=== PATIENT | male | born 1955 | race Caucasian/White ===

== ENCOUNTER → 2017-11-17 18:47 | Outpatient (CLI) | payer MEDICARE, SELFPAY | PROVIDERS: Visit Provider Family Medicine | DX: N20.0 Calculus of kidney (principal) | CPT/HCPCS: 82360 ==

== ENCOUNTER → 2019-10-07 15:00 | Outpatient (CLI) | payer MEDICARE, SELFPAY | PROVIDERS: PCP Family Medicine; Referring Provider Family Medicine; Visit Provider Family Medicine | DX: G40.909 Epilepsy, unspecified, not intractable, without status epilepticus (principal); E55.9 Vitamin D deficiency, unspecified; E53.8 Deficiency of other specified B group vitamins | CPT/HCPCS: 36415 ==

== ENCOUNTER → 2020-04-12 08:21 | Outpatient (CLI) | payer MEDICARE, SELFPAY | LOC: LABSPEC 09:24 → LAB 09:27 | PROVIDERS: PCP Family Medicine; Visit Provider Family Medicine | DX: E55.9 Vitamin D deficiency, unspecified (principal); G40.909 Epilepsy, unspecified, not intractable, without status epilepticus; E53.8 Deficiency of other specified B group vitamins; Z12.5 Encounter for screening for malignant neoplasm of prostate; Z13.220 Encounter for screening for lipoid disorders | CPT/HCPCS: 36415 ==

== ENCOUNTER → 2020-08-25 11:54 | Outpatient (CLI) | payer MEDICARE, SELFPAY | PROVIDERS: PCP Family Medicine; Visit Provider Family Medicine | DX: N28.9 Disorder of kidney and ureter, unspecified (principal); E78.5 Hyperlipidemia, unspecified; E53.8 Deficiency of other specified B group vitamins | CPT/HCPCS: 36415 ==

== ENCOUNTER → 2020-09-21 08:45 | Outpatient (REF) | payer MEDICARE, SELFPAY | LOC: LAB 08:45 | PROVIDERS: PCP Family Medicine; Referring Provider Family Medicine; Visit Provider Family Medicine | DX: N28.9 Disorder of kidney and ureter, unspecified (principal); E78.5 Hyperlipidemia, unspecified; E53.8 Deficiency of other specified B group vitamins | CPT/HCPCS: 36415 ==

== ENCOUNTER → 2020-12-25 09:27 | Outpatient (CLI) | payer MEDICARE, SELFPAY | PROVIDERS: PCP Family Medicine; Visit Provider Family Medicine | DX: N28.9 Disorder of kidney and ureter, unspecified (principal) | CPT/HCPCS: 36415 ==

== ENCOUNTER → 2022-01-01 | Outpatient (CLI) | payer MEDICARE, SELFPAY ==
[2022-01-01 17:57] LABS: Hematocrit 44.4 % (40-54); Hemoglobin 13.8 g/dL (13.0-16.5); Mean Corp Hgb Conc 31.1 g/dL (32-36); Mean Corpuscular Hgb 29.4 pg (27.0-32.0); Mean Corpuscular Volume 94.5 fL (80-94); Mean Platelet Vol. 9.5 fl (6.2-12.0); Platelet Count 297 K/mm3 (150-450); RBC Distribution Width CV 13.4 % (11.6-14.6); RBC Distribution Width SD 47.3 fl (35.1-43.9); White Blood Count 6.4 K/mm3 (4.4-11.0)
[2022-01-01 18:13] LABS: Vitamin B12 613 pg/mL (211-911); Vitamin D,25 Hydroxy 39.1 ng/mL
[2022-01-01 18:15] LABS: ALB/GLOB Ratio 1.1 RATIO (0.9-2.4); AST(SGOT) 20 U/L (15-37); Alanine Aminotransfer ALT/SGPT 27 U/L (16-61); Albumin, Serum 3.8 g/dL (3.2-5.0); Alkaline Phosphatase 83 U/L (45-117); Anion Gap 5 (5-15); BUN 13 mg/dL (7-18); BUN/Creat Ratio 9.1 RATIO (10-20); Calcium,Total 9.5 mg/dL (8.5-10.1); Chloride 113 mmol/L (98-107); Cholesterol 156 mg/dL (200); Creatinine, Serum 1.43 mg/dL (0.70-1.30); EST Glomerular Filtration Rate 53 mL/min (>60); Est Glom Filt Rate - Afr Amer 64 mL/min (>60); Ferritin 49 ng/mL (26-388); Globulin 3.5 g/dL (2.2-4.2); Glucose 105 mg/dL (74-106); High Density Lipoprotein 52 mg/dL; Iron 71 ug/dL (65-175); PSA,Total - Annual Screen 2.01 ng/mL (0.00-4.00); Potassium 4.9 mmol/L (3.5-5.1); Protein, Total 7.3 g/dL (6.4-8.2); Sodium Level 141 mmol/L (136-145); Triglycerides 181 mg/dL; Very Low Density Lipoprotein 36 mg/dL (5-40)
[2022-01-01 18:20] LABS: Erythrocyte Sedimentation Rate 15 mm/hr (0-20)
[2022-01-03 15:17] LABS: ANTINUCLEAR ANTIBODIES DIRECT Negative (Negative)
== END | disposition home or self-care (01) ==
LOC: MFPLAB 15:38
PROVIDERS: PCP Family Medicine; Referring Provider Family Medicine; Visit Provider Family Medicine
DX: G62.9 Polyneuropathy, unspecified (principal); G40.909 Epilepsy, unspecified, not intractable, without status epilepticus; E55.9 Vitamin D deficiency, unspecified; Z12.5 Encounter for screening for malignant neoplasm of prostate; E53.8 Deficiency of other specified B group vitamins; Z13.220 Encounter for screening for lipoid disorders
CPT/HCPCS: 36415; 80053; 80061; 82306; 82607; 82728; 83540; 84153; 85027; 85652; 86038; G0103

== ENCOUNTER → 2022-08-14 | Outpatient (CLI) | payer MEDICARE, SELFPAY | END | disposition home or self-care (01) | LOC: MFPLAB 16:24 | PROVIDERS: PCP Family Medicine; Visit Provider Family Medicine | DX: N18.9 Chronic kidney disease, unspecified (principal) | CPT/HCPCS: 36415 ==

== ENCOUNTER → 2023-09-25 | Outpatient (CLI) | payer MEDICARE, SELFPAY ==
[2023-09-25 17:54] LABS: AST(SGOT) 14 U/L (15-37); Alanine Aminotransfer ALT/SGPT 22 U/L (16-61); Albumin, Serum 3.7 g/dL (3.2-5.0); Alkaline Phosphatase 88 U/L (45-117); Anion Gap 2 (5-15); BUN 18 mg/dL (7-18); BUN/Creat Ratio 12.2 RATIO (10-20); Bilirubin, Direct 0.15 mg/dL (0.00-0.30); Calcium,Total 9.6 mg/dL (8.5-10.1); Chloride 116 mmol/L (98-107); Cholesterol 139 mg/dL (200); Creatinine, Serum 1.47 mg/dL (0.70-1.30); EST Glomerular Filtration Rate 51 mL/min (>60); Est Glom Filt Rate - Afr Amer 61 mL/min (>60); Globulin 3.1 g/dL (2.2-4.2); Glucose 111 mg/dL (74-106); High Density Lipoprotein 49 mg/dL; PSA,Total - Annual Screen 2.25 ng/mL (0.00-4.00); Potassium 3.8 mmol/L (3.5-5.1); Protein, Total 6.8 g/dL (6.4-8.2); Sodium Level 143 mmol/L (136-145); Triglycerides 169 mg/dL; Very Low Density Lipoprotein 34 mg/dL (5-40)
== END | disposition home or self-care (01) ==
LOC: MFPLAB 16:33
PROVIDERS: PCP Family Medicine; Visit Provider Family Medicine
DX: E78.5 Hyperlipidemia, unspecified (principal); G40.909 Epilepsy, unspecified, not intractable, without status epilepticus; Z12.5 Encounter for screening for malignant neoplasm of prostate
CPT/HCPCS: 36415; 80048; 80061; 80076; 84153; G0103

== ENCOUNTER → 2024-12-13 | Outpatient (CLI) | payer MEDICARE, SELFPAY ==
[2024-12-13 17:44] LABS: Hematocrit 40.9 % (40-54); Hemoglobin 13.3 g/dL (13.0-16.5); Mean Corp Hgb Conc 32.5 g/dL (32-36); Mean Corpuscular Hgb 29.8 pg (27.0-32.0); Mean Corpuscular Volume 91.7 fL (80-94); Platelet Count 292 K/mm3 (150-450); RBC Distribution Width CV 13.2 % (11.6-14.6); RBC Distribution Width SD 44.7 fl (35.1-43.9); Red Blood Count 4.46 M/mm3 (4.6-6.2); White Blood Count 9.4 K/mm3 (4.4-11.0)
[2024-12-13 18:04] LABS: PTHIN 38 pg/mL (11-61)
[2024-12-13 18:23] LABS: Anion Gap 13 (5-15); BUN 15 mg/dL (4-19); BUN/Creat Ratio 11.5 RATIO (10-20); Calcium,Total 10.4 mg/dL (7.6-11.0); Carbon Dioxide 19.1 mmol/L (21.0-32.0); Chloride 108 mmol/L (98-108); Creatinine, Serum 1.29 mg/dL (0.70-1.20); EST Glomerular Filtration Rate 60 (>60); Glucose 106 mg/dL (70-99); Iron 30 ug/dL (65-175); PSA,Total - Annual Screen 2.02 ng/mL (0.02-4.00); Potassium 4.4 mmol/L (3.3-5.1); Sodium Level 140 mmol/L (133-145); Vitamin B12 980 pg/mL (180-914); Vitamin D,25 Hydroxy 50.4 ng/mL (30-100)
== END | disposition home or self-care (01) ==
LOC: MTLAB 14:26
PROVIDERS: Anesthesiology; PCP Family Medicine; Referring Provider Family Medicine; Visit Provider Family Medicine
DX: Z01.818 Encounter for other preprocedural examination (principal); Z12.5 Encounter for screening for malignant neoplasm of prostate; N18.9 Chronic kidney disease, unspecified; E53.8 Deficiency of other specified B group vitamins
CPT/HCPCS: 36415; 80048; 82306; 82607; 83540; 83970; 84153; 85027; G0103

== ENCOUNTER 2024-12-20 05:54 | Day surgery (SDC) | payer MEDICARE, SELFPAY ==
--- NOTE | 2024-12-09 13:34 | EKG12_ITS ---
Test Reason : PRE OP Blood Pressure : */* mmHG Vent. Rate : 67 BPM Atrial Rate : 67 BPM P-R Int : 180 ms QRS Dur : 92 ms QT Int : 384 ms P-R-T Axes : 79 47 80 degrees QTcB Int : 405 ms Normal sinus rhythm Normal ECG Confirmed by RAJESH JUSTIN, CHARO ([id number]), development editor KAREN FLORES ([id number]) on 12/10/2024 6:40:39 AM Referred By: Wan Diana Confirmed By: CHARO MENA MD
--- NOTE | 2024-12-17 10:03 | PAT.ANE_ITS ---
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 When Was Last Pacemaker Check QUESTION #4 FULL TEXT: You/Your Family Experience fever (hyperthermia) with Anesthesia Last Oral Intake Last Oral intake: Last Oral Intake NPO since Meds taken in AM with sips of water? 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 - construction administrative assistant: PONV - construction administrative assistant Female No 12/06/24 13:08 HX of Motion Sickness No 12/06/24 13:08 HX of N/V After Surgery No 12/06/24 13:08 Non-Smoker Yes 12/06/24 13:08 Duration of Surgery greater Yes 12/06/24 13:08 than 60 minutes Number of Risk Factors 2 12/06/24 13:08 PONV Score Moderate Risk 12/06/24 13:08 Height & Weight Height & Weight: Anesthesia: Height & Weight Height 5 ft 10 in 11/18/24 09:31 Respiratory Assessment Respiratory Assessment - construction administrative assistant: Respiratory Tract Infection Hx - construction administrative assistant Hx Respiratory Tract Infection No 12/06/24 13:08 STOP Sleep Apnea STOP Sleep Apnea - construction administrative assistant: STOP Sleep Apnea - construction administrative assistant Hx Hypertension No 12/06/24 13:08 Hx Sleep Apnea No 12/06/24 13:08 CPAP BIPAP Do you snore loudly (louder No 12/06/24 13:08 than talking or can be heard Do you often feel tired/ No 12/06/24 13:08 fatigued/ sleepy during daytime? Has anyone observed you stop No 12/06/24 13:08 breathing during sleep? STOP Results Negative 12/06/24 13:08 QUESTION #5 FULL TEXT : Do you snore loudly (louder than talking or can be heard through closed doors)? 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 Specify any problems Hx of Preganancy in last 3 N/A 12/06/24 13:08 Months Nurse Filling Out Transfusion MGRIFFITH 12/06/24 13:08 & Questions: Date: 12/06/24 12/06/24 13:08 Time: 13:10 12/06/24 13:08 Patient unable to answer at this time (ie. confused, unrespo /Reproduction History /Reproductive History - construction administrative assistant: /Reproductive Hx- construction administrative assistant Hx Now Gestational Age (in weeks): EDC: Hx Hx Para Hx Section SAB Active Medications Active Medications: Current Medications Generic Name Dose Route Start Last Admin Trade Name Freq PRN Reason Stop Dose Admin Cefazolin Sodium 2 gm/ Sodium 110 mls @ 150 mls/hr 12/20/24 07:30 Chloride IV 12/20/24 08:13 INTRAOP ONE [facility] Medical History Wears glasses High cholesterol Non-smoker Seizures Left groin pain Home Medications ?Medication ?Instructions ?Recorded ?Last Taken ?Type atorvastatin 20 mg tablet 20 mg PO QDAY 11/18/24 Unkno wn History cholecalciferol (vitamin D3) 50 50 mcg PO QDAY 5 Unknown History mcg (2,000 unit) capsule mecobalamin (vitamin B12) 1,000 1,000 mcg PO QDAY 11/09 Unknown History mcg chewable tablet ldeyjsclrvck-iiimyqjw-ccrrnp tablet 1 tab PO QDAY 11/09 Unknown History topiramate 100 mg tablet (Topamax) 100 mg PO BID 11/18 Unknown History zonisamide 100 mg capsule 100 mg PO BID 11/18/24 Unkno wn History Allergy/AdvReac Type Severity Reaction Status Date / Time No Known Allergies Allergy Verified 12/06/24 13:04 Surgical History (Updated 11/18/24 @ 09:30 by Cheri Bernard) S/P knee surgery Social History (Updated 11/18/24 @ 09:31 by Cheri Bernard) Smoking Status: Never smoker alcohol intake: never Audit: Pertinent Findings HISTORY of Pertinent Findings History of Pertinent Findings: This is a patient with a hx of seizures on 2 anti-epileptics. Blood levels for seizure meds w/in normal limits. Pertinent Findings EKG Perinent findings: 12/09/24: Normal sinus rhythm Additional pertinent findings: serum Zonisamide and topiramate level is within normal limits Recommendation Anesthesia Recommendation Anesthesia recommendation: OPTIMIZED for anesthesia (please ensure that patient takes his anti-epileptics as prescribed )
[2024-12-20] VITALS (10 sets, daily range): BP systolic 106–122; BP diastolic 57–66; PULSE 58–63; RESP 16–20; TEMP 36.2–37.1; O2SAT 95–99; BMI 27.0
[2024-12-20] MEDS: Lactated Ringers 1,000 ML 15 ML IV (06:45)
--- NOTE | 2024-12-20 07:22 | PCM.PRE.AN2 ---
ASA Classification* ASA Classification ASA Classification: 2 Assessment & Plan Anesthesia* Anesthesia Assessment Anesthesia Assessment: Discussed sedation and/or anesthesia options, risks, benefits, and alternatives with patient/parents/legal guardian/POA. Questions invited. The patient/parents/legal guardian/POA seems to understand and agrees to proceed with anesthesia plan. Reviewed the physical assessment, medical history, allergy history and patient home medications list prior to surgery/procedure/anesthetic and documented any changes. Performed airway and anesthesia risk assessments. Anesthesia Type Anesthesia Type: General History Source History Obtained from:: Patient and Chart Anesthesia Focused Assessment* Temperature: 98.8 F Pulse Rate: 58 Blood Pressure: 107/66 Respiratory Rate: 16 Pulse Ox: 98 Oxygen Delivery Method: Room Air Airway Assessment Mouth opens: >3 cm Mallampati Score: III Teeth Condition: Missing (Patient has 1 missing molar right lower.) Neck Range of motion (ROM): Full ROM Focused Labs Anesthesia Preop lab: CBC WBC 9.4 K/mm3 (4.4-11.0) 12/13/24 14:41 12/13/24 RBC 4.46 M/mm3 (4.6-6.2) L 12/13/24 14:41 12/13/24 Hgb 13.3 g/dL (13.0-16.5) 12/13/24 14:41 12/13/24 Hct 40.9 % (40-54) 12/13/24 14:41 12/13/24 Plt Count 292 K/mm3 (150-450) 12/13/24 14:41 12/13/24 CHEMISTRY Potassium 4.4 mmol/L (3.3-5.1) 12/13/24 14:41 12/13/24 Sodium 140 mmol/L (133-145) 12/13/24 14:41 12/13/24 BUN 15 mg/dL (4-19) 12/13/24 14:41 12/13/24 Creatinine 1.29 mg/dL (0.70-1.20) H 12/13/24 14:41 12/13/24 Glucose 106 mg/dL (70-99) H 12/13/24 14:41 12/13/24 COAG Pre-Assessment Diagnosis/Proposed Procedure Planned Operative Procedure(s): (B) Lap Robotic Inguinal Hernia-bilateral inguinal hernia repair with mesh Anesthesia History 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 When Was Last Pacemaker Check QUESTION #4 FULL TEXT: You/Your Family Experience fever (hyperthermia) with Anesthesia Last Oral Intake Last Oral intake: Last Oral Intake NPO since 23:45 12/20/24 06:31 Meds taken in AM with sips of No 12/20/24 06:31 water? 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 Female No 12/06/24 13:08 HX of Motion Sickness No 12/06/24 13:08 HX of N/V After Surgery No 12/06/24 13:08 Non-Smoker Yes 12/06/24 13:08 Duration of Surgery greater Yes 12/06/24 13:08 than 60 minutes Number of Risk Factors 2 12/06/24 13:08 PONV Score Moderate Risk 12/06/24 13:08 Height & Weight Height & Weight: Anesthesia: Height & Weight Height 5 ft 10 in 12/20/24 06:31 Weight: 85.4 kg 12/20/24 06:31 Body Mass Index (BMI) 27.0 12/20/24 06:31 Respiratory Assessment Respiratory Assessment - textile pin worker: Respiratory Tract Infection Hx - textile pin worker Hx Respiratory Tract Infection No 12/06/24 13:08 STOP Sleep Apnea STOP Sleep Apnea - textile pin worker: STOP Sleep Apnea - textile pin worker Hx Hypertension No 12/06/24 13:08 Hx Sleep Apnea No 12/06/24 13:08 CPAP BIPAP Do you snore loudly (louder No 12/06/24 13:08 than talking or can be heard Do you often feel tired/ No 12/06/24 13:08 fatigued/ sleepy during daytime? Has anyone observed you stop No 12/06/24 13:08 breathing during sleep? STOP Results Negative 12/06/24 13:08 QUESTION #5 FULL TEXT : Do you snore loudly (louder than talking or can be heard through closed doors)? 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 Specify any problems Hx of Preganancy in last 3 N/A 12/06/24 13:08 Months Nurse Filling Out Transfusion MGRIFFITH 12/06/24 13:08 & Questions: Date: 12/06/24 12/06/24 13:08 Time: 13:10 12/06/24 13:08 Patient unable to answer at this time (ie. confused, unrespo /Reproduction History /Reproductive History - textile pin worker: /Reproductive Hx- textile pin worker Hx Now Gestational Age (in weeks): EDC: Hx Hx Para Hx Section SAB Active Medications Active Medications: Current Medications Generic Name Dose Route Start Last Admin Trade Name Freq PRN Reason Stop Dose Admin Cefazolin Sodium 2 gm/ Sodium 110 mls @ 150 mls/hr 12/20/24 07:30 Chloride IV 12/20/24 08:13 INTRAOP ONE Lactated Ringer's 1,000 mls @ 15 mls/hr 12/20/24 06:30 12/20/24 06:45 IV 15 mls/hr .Q48H MAXIMINO Administration PFSH Medical History Wears glasses High cholesterol Non-smoker Seizures Left groin pain Home Medications ?Medication ?Instructions ?Recorded ?Last Taken ?Type atorvastatin 20 mg tablet 20 mg PO QDAY 11/18/24 12/19/24 History cholecalciferol (vitamin D3) 50 50 mcg PO QDAY 11/18/24 12/19/24 History mcg (2,000 unit) capsule mecobalamin (vitamin B12) 1,000 1,000 mcg PO QDAY 11/18/24 12/19/24 History mcg chewable tablet uvxozefuzdlz-xlmphtkg-vjbtkn tablet 1 tab PO QDAY 11/18/24 12/19/24 History topiramate 100 mg tablet (Topamax) 100 mg PO BID 11/18/24 12/19/24 History zonisamide 100 mg capsule 100 mg PO BID 11/18/24 12/19/24 History Allergy/AdvReac Type Severity Reaction Status Date / Time No Known Allergies Allergy Verified 12/20/24 06:27 Surgical History S/P knee surgery Social History Smoking Status: Never smoker alcohol intake: never Review of Systems (Anesthesia) ROS Narrative System reviewed and no additional complaints, except as documented.
[2024-12-20] MEDS: ZONISAMIDE 100 MG CAPSULE PO (07:40)
[2024-12-20] MEDS: Topiramate 100 MG Tablet PO (07:40)
--- NOTE | 2024-12-20 07:46 | PCM.HP.STD ---
HPI - General General Date of Admission: 12/20/24 Date of Service: 12/20/24 Chief Complaint: bilateral inguinal hernia HPI Narrative YLOANDE SALMERON, is a 69 M who presents for elective repair of bilateral inguinal hernias [facility] Medical History Wears glasses High cholesterol Non-smoker Seizures Left groin pain Home Medications ?Medication ?Instructions ?Recorded ?Last Taken ?Type atorvastatin 20 mg tablet 20 mg PO QDAY 11/18/24 12/19/24 History cholecalciferol (vitamin D3) 50 50 mcg PO QDAY 11/18/24 12/19/24 History mcg (2,000 unit) capsule mecobalamin (vitamin B12) 1,000 1,000 mcg PO QDAY 11/18/24 12/19/24 History mcg chewable tablet pyvavksyjoim-hqipopfi-dzwysr tablet 1 tab PO QDAY 11/18/24 12/19/24 History topiramate 100 mg tablet (Topamax) 100 mg PO BID 11/18/24 12/19/24 History zonisamide 100 mg capsule 100 mg PO BID 11/18/24 12/19/24 History Allergy/AdvReac Type Severity Reaction Status Date / Time No Known Allergies Allergy Verified 12/20/24 06:27 Surgical History S/P knee surgery Social History Smoking Status: Never smoker alcohol intake: never Vital Signs Vital Signs Vital Signs: 12/20/24 06:31 12/20/24 06:31 12/20/24 07:28 Temperature 98.8 F 98.8 F Temperature Source Temporal Pulse Rate 58 L 58 L Respiratory Rate 16 16 Respiratory Pattern Normal Blood Pressure 107/66 107/66 Blood Pressure Mean 79 Blood Pressure Source Monitor Blood Pressure Position Semi-Fowlers Blood Pressure Location Right Arm Pulse Ox 98 98 Oxygen Delivery Method Room Air Room Air Weight Weight: 188 lb 4.396 oz Body Mass Index (BMI) 27.0 Physical Exam Const alert, oriented x3 and no apparent distress Charges/Coding Visit Charges Inpatient E&M: 19589 Init Hosp L1
[2024-12-20 07:47] LABS: Partial Thromboplast Time 28.5 Seconds (24.1-36.2)
[2024-12-20] MEDS: Cefazolin 2 GM in 0.9% Normal Saline (100mL Bag) 100 ML IV (08:11)
[2024-12-20] MEDS: Gentamicin 80 MG/2 ML Vial (08:36)
[2024-12-20] MEDS: Bupiv/Epi 0.25% 30 ML Vial (09:52)
--- NOTE | 2024-12-20 09:54 | DCINST_ITS ---
Discharge Instructions Diet Discharge Diet: Light diet - advance as tolerated Activity Discharge Activity: Return to Normal Activity and May Shower May shower in (days): 1 Ice area for (Minutes): 30 Lifting Restrictions: No lifting over 20 pounds for 6 weeks Dressing / Incision Call your doctor if your incision/area has: Continuous Slow Oozing, Sudden In creased Bleeding, Increased Pain/ Swelling, Increased Redness, Foul Smelling Discharge and Swelling at the incision site Call your doctor if you observe: Fever of 101 or Higher Cleanse incision/area with: Soap & Water Follow Up Care Please Follow Up With: Wan Diana MD When: 2 weeks. Please call office to schedule appointment Test Results: Test results from this visit will be discussed in further detail at your follow- up appointment, if applicable. Discharge Plan Admission Primary Reason for Your Visit: Bilateral inguinal hernia repair Attending Provider: Wan Diana Primary Care Provider: Steve Hughes Instructions Print Language: Iranian Discharge Orders/Prescriptions Prescriptions: New oxycodone-acetaminophen [Percocet] 5-325 mg tablet 1 tab PO Q8H PRN (Reason: pain) 3 Days Qty: 10 0RF Continued topiramate [Topamax] 100 mg tablet 100 mg PO BID cholecalciferol (vitamin D3) 50 mcg (2,000 unit) capsule 50 mcg PO QDAY zonisamide 100 mg capsule 100 mg PO BID mecobalamin (vitamin B12) 1,000 mcg tablet,chewable 1,000 mcg PO QDAY atorvastatin 20 mg tablet 20 mg PO QDAY vuxcnskybqkw-xggdtjru-jsqhxp Tablet 1 tab PO QDAY Other Ambulatory Orders: 12 Lead EKG (Routine) Timeframe: 20241209 Location: None Selected Ordered By: Dr. Cristóbal Horan Referrals / Follow Up: Steve Hughes MD [Primary Care Provider] - Disposition Disposition (needs filled in before D/C Order can be placed): Home, Self Care
--- NOTE | 2024-12-20 09:59 | PCM.OPRPT ---
Problems Associated Problem List Diagnoses (1) Bilateral inguinal hernia without obstruction or gangrene: Procedures Digestive 40xxx-49xxx: [id number] Lap ing hernia repair init; bilat Operative Report (Standard) Operative Information Date of Procedure: 12/20/24 Pre-Operative Diagnosis: Bilateral inguinal hernia Post-Operative Diagnosis: Bilateral inguinal hernia Surgery/Procedure Performed: Robotic bilateral inguinal hernia repair with mesh visual presentation manager: Yes Diesel Engine Pipe Fitter: Sheri Callaway Tasks completed by merchandising assistant: Closing, Trocar and Other Additional legal administrative assistant?: No Type of Anesthesia: General and Local RN Documented Start/Stop Times: Operation Date: 12/20/24 07:30 Case Time Into Pre-Op 12/20/24 06:18 Out of Pre-Op 12/20/24 07:50 Anesthesia Start 12/20/24 07:53 Into Room 12/20/24 07:53 Procedure Start 12/20/24 08:21 Into Recovery Procedure Start Time: 08:21 Procedure Stop Time: 09:55 Select all DRAINS/GRAFTS/IMPLANTS that apply: Prosthetic device Prosthetic device details: ProGrip 10 x 15 cm mesh x 2 Special Medications: 2 g Ancef IV preop Estimated Blood Loss: Minimal Specimen collected: No Description of surgery: The patient is a 69-year-old male who presented to my office recently with left inguinal pain and a bulge. On examination he actually had bilateral inguinal hernias. I offered him a robotic bilateral inguinal hernia repair with mesh. We discussed the details of the planned procedure including the risks benefits and alternatives. He wished to proceed. The patient was brought to the operating room today following informed consent. Preoperative antibiotics were given and a timeout was performed. He was placed supine on the operative table with arms outstretched on arm boards. General anesthesia was induced. Once adequately anesthetized his arms were comfortably tucked at his sides. The abdomen was then prepped and draped in the usual sterile manner. An 8 mm incision was made just above the umbilicus which a 5 mm trocar was placed optically. This was placed without incident. The abdomen is then insufflated with CO2 gas. A 5 mm 0 degree scope was inserted. There were no signs of bowel or vascular injury. Next 2 additional 8 mm trocars were placed. These were on either side of the abdomen and roughly the same level as the umbilicus. These were also placed without incident. The original 5 mm trocar at the umbilicus was then switched to an 8 mm trocar. The da Mir robot was then docked. Patient was placed in mild Trendelenburg positioning. The pelvis was visualized. The left-sided hernia was repaired first. This was performed by incising the peritoneum in a medial to lateral direction using curved scissors and electrocautery. A subperitoneal plane was then developed. Porter's ligament was dissected out medially. The patient had a indirect hernia along with a pretty sizable cord lipoma as well. This was reduced. Once sufficient dissection was performed to accommodate the mesh, a 10 x 15 piece of ProGrip mesh was selected. This was trimmed to fit the size of the region of dissection. This was placed in antibiotic solution and then inserted into the abdomen. It was then laid into position. It covered over the region nicely. The peritoneum was then closed in a running manner using a 6 inch V-Loc suture. This closed the peritoneum nicely. The right sided hernia was then addressed. The peritoneum again was then incised transversely in a lateral to medial direction. Another subperitoneal plane was developed. Porter's ligament was dissected out medially. Patient had another indirect hernia on the right side as well. He also had a cord lipoma on the side as well. The right side cord lipoma was much smaller. This was reduced. The mesh again was selected and trimmed to size. It was placed in antibiotic solution and laid in position. The mesh laid nicely over the dissection region, covering over the fascial defect nicely. The peritoneum was then closed again in a similar manner using a 6 inch V-Loc suture. The intra-abdominal pressure was decreased as the peritoneum was closed. All counts were correct at the end of the procedure. Local anesthetic was injected into each of the incision sites. The incisions were then closed with 4-0 Vicryl. Skin glue was applied as dressing. The patient was awakened from anesthesia and taken to recovery in good condition. He tolerated the surgery very well Surgical Findings: Bilateral inguinal hernias Complications Complications: No Admit VTE Documentation VTE Present on Admission: No VTE Mechan Device Prophylaxis: SCD's VTE Pharm Prophylaxis ordered?: No Reason prophylaxis not ordered: Treatment Not Indicated
--- NOTE | 2024-12-20 10:10 | PCM.POST.ANE ---
Anesthesia: Postop Eval I Current Vital Signs Temperature: 97.6 F Pulse Rate: 61 Blood Pressure: 111/64 Respiratory Rate: 20 Pulse Ox: 95 Oxygen Delivery Method: Room Air Assessment Airway patent: Yes Spontaneous unlabored respirations: Yes Mental status: Awake nausea: No Vomiting: No Anesthesia Complication: No Fluid Hydration Crystalloid volume administer (ml): 1,100 Total IV fluid infused: 1,100 Progress Note Anesthesia document: Postop Eval 1 completed: Yes
--- NOTE | 2024-12-20 18:08 | POSTOPAN2_ITS ---
Anesthesia Postop Eval I Sum Postop Eval Completion status Anesthesia document: Postop Eval 1 completed: Yes Anesthesia Postop Eval I Summary Anesthesia Postop Eval I Summary: Anesthesia Postop Eval I: Assessment Summary Airway patent Yes 12/20/24 10:11 [email or web address] Spontaneous unlabored Yes 12/20/24 10:11 [email or web address] respirations Mental status Awake 12/20/24 10:11 [email or web address] nausea No 12/20/24 10:11 WASHER [email or web address] Vomiting No 12/20/24 10:11 [email or web address] Anesthesia Postop Eval I: Fluid Summary Crystalloid volume administer 1,100 12/20/24 10:11 [email or web address] (ml) Colloids volume administered ( ml) Blood Product volume administered (ml) Total IV fluid infused 1,100 12/20/24 10:11 [email or web address] Anesthesia Postop Eval I: Summary Notes Anesthesia Complication No 12/20/24 10:11 [email or web address] Anesthesia Complication Comment: Post-operative progress note Anesthesia: Postop Eval II Evaluation Mental status: Awake and Calm Pain Level: 1 nausea: No Vomiting: No Complications Anesthesia Complication: No
--- NOTE | 2024-12-20 18:08 | PCM.POSTANE2 ---
Anesthesia Postop Eval I Sum Postop Eval Completion status Anesthesia document: Postop Eval 1 completed: Yes Anesthesia Postop Eval I Summary Anesthesia Postop Eval I Summary: Anesthesia Postop Eval I: Assessment Summary Airway patent Yes 12/20/24 10:11 VICE PRESIDENT OF SOFTWARE DEVELOPMENT.[email or web address] Spontaneous unlabored Yes 12/20/24 10:11 VICE PRESIDENT OF SOFTWARE DEVELOPMENT.JDEF respirations Mental status Awake 12/20/24 10:11 VICE PRESIDENT OF SOFTWARE DEVELOPMENT.JDEF nausea No 12/20/24 10:11 VICE PRESIDENT OF SOFTWARE DEVELOPMENT.JDEF Vomiting No 12/20/24 10:11 VICE PRESIDENT OF SOFTWARE DEVELOPMENT.[email or web address] Anesthesia Postop Eval I: Fluid Summary Crystalloid volume administer 1,100 12/20/24 10:11 VICE PRESIDENT OF SOFTWARE DEVELOPMENT.JDEF (ml) Colloids volume administered ( ml) Blood Product volume administered (ml) Total IV fluid infused 1,100 12/20/24 10:11 VICE PRESIDENT OF SOFTWARE DEVELOPMENT.[email or web address] Anesthesia Postop Eval I: Summary Notes Anesthesia Complication No 12/20/24 10:11 VICE PRESIDENT OF SOFTWARE DEVELOPMENT.JDEF Anesthesia Complication Comment: Post-operative progress note Anesthesia: Postop Eval II Evaluation Mental status: Awake and Calm Pain Level: 1 nausea: No Vomiting: No Complications Anesthesia Complication: No
== END 2024-12-20 12:11 | disposition home or self-care (01) ==
LOC: SDC 05:54 → AC 05:55
PROVIDERS: Student in an Organized Health Care Education/Training Program; PCP Family Medicine; Referring Provider Surgery; Visit Provider Surgery
PROC: (CPT 49650; principal; 2024-12-20 07:10)
DX: K40.20 Bilateral inguinal hernia, without obstruction or gangrene, not specified as recurrent (principal); E78.00 Pure hypercholesterolemia, unspecified; Z01.818 Encounter for other preprocedural examination; Z01.810 Encounter for preprocedural cardiovascular examination
CPT/HCPCS: 49650; 85730; 93005; C1781; J2405

== ENCOUNTER → 2024-12-27 | Outpatient (CLI) | payer MEDICARE, SELFPAY ==
--- NOTE | 2024-12-27 14:55 | RAD_ITS ---
PROCEDURE: KNEE 4 OR MORE VIEWS 12/27/2024 REASON FOR EXAM: PAIN TECHNIQUE: 4 view(s) of the right knee COMPARISON: None FINDINGS: No fracture or malalignment. Mild tricompartmental joint space narrowing. Bone mineral density is subjectively normal. Trace knee joint effusion. Soft tissues are unremarkable. RAD/Knee 4 or More Views IMPRESSION: Mild osteoarthritis of the right knee. Reading Location: [facility]
== END | disposition home or self-care (01) ==
LOC: MTRAD 14:53
PROVIDERS: PCP Family Medicine; Referring Provider Family Medicine; Visit Provider Family Medicine
DX: M25.561 Pain in right knee (principal)
CPT/HCPCS: 73564

== ENCOUNTER → 2025-01-27 | Outpatient (CLI) | payer MEDICARE, SELFPAY ==
[2025-01-27 12:32] LABS: Erythrocyte Sedimentation Rate 28 mm/hr (0-20)
[2025-01-27 13:05] LABS: Rheumatoid Factor < 10.0 IU/mL (<15); Uric Acid 5.3 mg/dL (3.5-7.2)
[2025-01-28 09:08] LABS: ANTINUCLEAR ANTIBODIES DIRECT Negative (Negative)
[2025-01-28 13:07] LABS: Lyme Scn Total Ab w/Rflx Negative (Negative)
== END | disposition home or self-care (01) ==
LOC: MFPLAB 10:40
PROVIDERS: PCP Family Medicine; Visit Provider Family Medicine
DX: M19.90 Unspecified osteoarthritis, unspecified site (principal)
CPT/HCPCS: 36415; 84550; 85652; 86038; 86140; 86431; 86618

== ENCOUNTER → 2025-03-08 | Outpatient (CLI) | payer MEDICARE, SELFPAY ==
[2025-03-08 19:15] LABS: Hematocrit 41.4 % (40-54); Hemoglobin 12.8 g/dL (13.0-16.5); Immature Granulocytes Count 0.020 X10^3/uL (0.0-0.0); Mean Corp Hgb Conc 30.9 g/dL (32-36); Mean Corpuscular Volume 94.7 fL (80-94); Mean Platelet Vol. 9.4 fl (6.2-12.0); NRBC Flagged by Analyzer 0 % (0-5); Platelet Count 383 K/mm3 (150-450); RBC Distribution Width CV 16.1 % (11.6-14.6); RBC Distribution Width SD 56.6 fl (35.1-43.9); Red Blood Count 4.37 M/mm3 (4.6-6.2); White Blood Count 8.2 K/mm3 (4.4-11.0)
[2025-03-08 19:50] LABS: CRP 14.90 mg/L (0.0-3.0)
== END | disposition home or self-care (01) ==
LOC: MFPLAB 14:14
PROVIDERS: PCP Family Medicine; Referring Provider Family Medicine; Visit Provider Family Medicine
DX: M25.50 Pain in unspecified joint (principal)
CPT/HCPCS: 36415; 85025; 85652; 86140

== ENCOUNTER 2025-06-17 14:59 | Inpatient (IN) | payer MEDICARE, SELFPAY ==
[2025-06-17] VITALS (13 sets, daily range): BP systolic 118–153; BP diastolic 65–74; PULSE 50–68; RESP 16–18; TEMP 36.4–37.1; O2SAT 94–100; BMI 23.0; BMI 21.6; BMI 24.0
[2025-06-17 15:52] LABS: Mucous, Urine 0 SEEN /hpf (<or=2+)
[2025-06-17 15:58] LABS: Color, Urine Brown (Yellow); Glucose, Dipstick Normal (Normal); Ketone-Dipstick 5 mg/dl (Negative); Leukocyte Esterase-Dipstick 100 /ul (Negative); Nitrite-Dipstick Positive (Negative); Occult Blood-Urine 250 /ul (Negative); Protein-Dipstick 100 mg/dl (Negative); Specific Gravity, Urine 1.020 (1.002-1.030)
[2025-06-17] MEDS: 0.9% Normal Saline (1000mL) 1,000 ML 1000 ML IV (16:02)
--- NOTE | 2025-06-17 16:13 | EX.ED.DYSGE1 ---
HPI History of Present Illness Chief Complaint: Flank Pain Narrative Narrative: Chief complaint and HPI: 69-year-old male with past medical history of urolithiasis, HLD, seizures presents for evaluation of urolithiasis. Patient states for the past 3 days he has had left flank pain with associated nausea and vomiting. He contacted his PCPs office who ordered an outpatient CT abdomen pelvis. CT abdomen pelvis showed a 16.7 mm calculus at the right UVJ causing right hydronephrosis as well as a 7 mm ureteral calculus in the distal portion of the left ureter causing mild degree of left hydronephrosis and hydroureter with perinephric stranding. Patient was then sent to the emergency department. He denies any fever, chills, dysuria. Does not follow with a urologist. Review of systems: See HPI Medications: As listed on the chart Allergies: As listed on the chart PFSH: Per chart Vital signs: As listed on the chart. Reviewed. Physical exam: Gen: A&O x3, NAD Head: Normocephalic, atraumatic Eyes: No sclera icterus, conjunctiva clear ENT: Moist mucous membranes CV: RRR, no murmurs Resp: Lungs CTA BL, no w/r/c GI: Abd soft, non-distended, non-tender, no r/r/g : No CVA tenderness Musc: Full ROM Skin: Warm, dry Psych: Cooperative, appropriate mood and affect [facility] Medical History (Updated 06/17/25 @ 15:44 by Sharon Squires) Kidney stones Bilateral inguinal hernia without obstruction or gangrene Wears glasses High cholesterol Non-smoker Seizures Left groin pain Home Medications ?Medication ?Instructions ?Recorded ?Last Taken ?Type atorvastatin 20 mg tablet 20 mg PO QDAY 11/18/24 12/19/24 History cholecalciferol (vitamin D3) 50 50 mcg PO QDAY 11/18/24 12/19/24 History mcg (2,000 unit) capsule mecobalamin (vitamin B12) 1,000 1,000 mcg PO QDAY 11/18/24 12/19/24 History mcg chewable tablet snfepdnpmkun-cypnojtd-fbljce tablet 1 tab PO QDAY 11/18/24 12/19/24 History topiramate 100 mg tablet (Topamax) 100 mg PO BID 11/18/24 12/19/24 History zonisamide 100 mg capsule 300 mg PO BID 11/18/24 12/19/24 History Allergy/AdvReac Type Severity Reaction Status Date / Time No Known Allergies Allergy Verified 06/17/25 15:02 Surgical History S/P knee surgery Social History Smoking Status: Never smoker alcohol intake: never EXAM Physical Exam Const Vital Signs: 06/17/25 15:00 06/17/25 17:00 Temperature 98.4 F Temperature Source Oral Pulse Rate 66 67 Respiratory Rate 16 16 Blood Pressure 153/74 H 129/67 H Blood Pressure Mean 100 87 Pulse Ox 100 100 Oxygen Delivery Method Room Air Room Air MDM MDM MDM Narrative Medical decision making narrative: 69-year-old male with past medical history of urolithiasis, HLD, seizures presents for evaluation of urolithiasis. Patient states for the past 3 days he has had left flank pain with associated nausea and vomiting. He contacted his PCPs office who ordered an outpatient CT abdomen pelvis. CT abdomen pelvis showed a 16.7 mm calculus at the right UVJ causing right hydronephrosis as well as a 7 mm ureteral calculus in the distal portion of the left ureter causing mild degree of left hydronephrosis and hydroureter with perinephric stranding. Patient was then sent to the emergency department. I personally reviewed the imaging of the CT abdomen pelvis. Differential diagnosis includes but is not limited to urolithiasis, electrolyte abnormality, JULIEN, UTI, pyelonephritis. NS bolus, morphine, Toradol ordered for symptoms. Laboratory workup ordered. CBC with mild leukocytosis 11.5. Patient has anemia of 12.5. On chart review has a history of anemia in the past. Patient has JULIEN with a BUN of 30 and a creatinine of 3.81. Baseline is about 1.2. UA positive for UTI. Urine culture sent. Rocephin ordered. Patient will warrant admission and likely OR. Urology, Dr. Dunn was consulted and patient was discussed. Plan is for OR this evening for stent placement. Patient made NPO. Recommend hospitalist admission. I spoke with the hospitalist who accepted admission. Spoke with the patient and updated of all results and plan. He confirmed understanding. Impression: 1. Bilateral urolithiasis with hydronephrosis 2. JULIEN secondary to #1 3. UTI Lab Data Labs: Laboratory Results - last 24 hr 06/17/25 06/17/25 15:46 16:00 WBC 11.5 H RBC 4.26 L Hgb 12.5 L Hct 38.8 L MCV 91.1 MCH 29.3 MCHC 32.2 RDW Std Deviation 47.6 H RDW Coeff of Ronny 14.4 Plt Count 322 MPV 9.1 Immature Gran % (Auto) 0.300 Neut % (Auto) 83.6 H Lymph % (Auto) 7.4 L [place] % (Auto) 8.1 Eos % (Auto) 0.2 Baso % (Auto) 0.4 Absolute Neuts (auto) 9.6 H Absolute Lymphs (auto) 0.85 Nucleated RBC % 0 Sodium 142 Potassium 4.6 Chloride 108 Carbon Dioxide 20.2 L Anion Gap 14 BUN 30 H Creatinine 3.81 H Estim Creat Clear Calc 18.84 L Est GFR (MDRD) Non-Af 16 L BUN/Creatinine Ratio 7.9 L Glucose 108 H Calcium 10.7 Urine Color Brown Urine Clarity Turbid Urine pH 5.0 Ur Specific [place] 1.020 Urine Protein 100 H Urine Glucose (UA) Normal Urine Ketones 5 H Urine Occult Blood 250 H Urine Nitrite Positive H Urine Bilirubin 1 H Urine Urobilinogen 1 H Ur Leukocyte Esterase 100 H Discharge Plan Triage Chief Complaint: Flank Pain ED Provider: Garret Cortes Dx/Rx/DC Orders Prescriptions: No Action topiramate [Topamax] 100 mg tablet 100 mg PO BID cholecalciferol (vitamin D3) 50 mcg (2,000 unit) capsule 50 mcg PO QDAY zonisamide 100 mg capsule 300 mg PO BID mecobalamin (vitamin B12) 1,000 mcg tablet,chewable 1,000 mcg PO QDAY atorvastatin 20 mg tablet 20 mg PO QDAY bwiflhzimwhy-cwanfygb-lrvuui Tablet 1 tab PO QDAY Primary Care Provider: Steve Hughes Referrals: Steve Hughes MD [Primary Care Provider, Family Practice] Print Language: Maori
[2025-06-17 16:16] LABS: Hematocrit 38.8 % (40-54); Hemoglobin 12.5 g/dL (13.0-16.5); Immature Granulocytes Count 0.040 X10^3/uL (0.0-0.0); Mean Corp Hgb Conc 32.2 g/dL (32-36); Mean Corpuscular Volume 91.1 fL (80-94); Mean Platelet Vol. 9.1 fl (6.2-12.0); NRBC Flagged by Analyzer 0 % (0-5); Platelet Count 322 K/mm3 (150-450); RBC Distribution Width CV 14.4 % (11.6-14.6); RBC Distribution Width SD 47.6 fl (35.1-43.9); Red Blood Count 4.26 M/mm3 (4.6-6.2); White Blood Count 11.5 K/mm3 (4.4-11.0)
[2025-06-17 16:32] LABS: Urine Bilirubin Dipstick 1 mg/dL (Negative)
[2025-06-17 16:47] LABS: Anion Gap 14 (5-15); BUN 30 mg/dL (4-19); BUN/Creat Ratio 7.9 RATIO (10-20); Calcium,Total 10.7 mg/dL (7.6-11.0); Carbon Dioxide 20.2 mmol/L (21.0-32.0); Chloride 108 mmol/L (98-108); Estimated Creatinine Clearance 18.84 ml/min (50-250); Glucose 108 mg/dL (70-99); Potassium 4.6 mmol/L (3.3-5.1)
[2025-06-17] MEDS: Ceftriaxone 2 GM in 0.9% Normal Saline (50mL MB+) 50 ML IV (17:01)
[2025-06-17 17:04] LABS: Red Blood Cells-Urine > 100 SEEN /hpf (0-5)
[2025-06-17 17:07] LABS: Squamous Epithelial Cells - UA 0-5 SEEN /hpf (0-5)
--- NOTE | 2025-06-17 17:12 | PCM.HP.STD ---
HPI - General General Date of Admission: 06/17/25 Date of Service: 06/17/25 Chief Complaint: Left-sided flank pain with nausea and vomiting HPI Narrative YOLANDE SALMERON, is a 69 M who presented to [facility] ED on 06/17/2025 with left-sided flank pain with nausea and vomiting. Patient has had kidney stones once in the past about 2 years ago, no recurrence since then. Medical history otherwise significant for seizure disorder and hyperlipidemia. In the ED CT abdomen pelvis showed a 16.7 mm calculus at the right UPJ causing marked right hydronephrosis and a 7 mm ureteral calculus in the distal left ureter causing mild left hydronephrosis and left hydroureter with left perinephric standing. He was afebrile, normotensive and stable on room air at rest in the ED. Labs notable for WBC count 11.5, creatinine 3.81 (baseline around 1.2), BUN 30. UA showed 100 leukocyte esterase, positive nitrates, 2+ bacteria, 2050 occult blood with greater than 100 RBCs noted. ED physician discussed case with Dr. Dunn who recommended an urgent procedure tonight. Hospitalist was then contacted for admission. I saw the patient at bedside in the ED, was present. Patient was mildly fatigued appearing but otherwise laying back comfortably in bed, conversing normally, in no acute distress. He denied any acute pain or discomfort currently. Reported mild nausea that was improved with a dose of IV Zofran. Has had minimal urine output today but notes that he did have moderate urine output for the past several days. He has had intermittent blood in his urine. No other acute concerns currently. Will be admitted for further management. [facility] Medical History (Updated 06/17/25 @ 18:[address] Danyel Roach, DO) Kidney stones Bilateral inguinal hernia without obstruction or gangrene Wears glasses High cholesterol Non-smoker Seizures Left groin pain Home Medications ?Medication ?Instructions ?Recorded ?Last Taken ?Type atorvastatin 20 mg tablet 20 mg PO QDAY 11/18/24 06/16/25 History cholecalciferol (vitamin D3) 50 50 mcg PO QDAY 11/18/24 06/16/25 History mcg (2,000 unit) capsule mecobalamin (vitamin B12) 1,000 1,000 mcg PO QDAY 11/18/24 06/16/25 History mcg chewable tablet tmemomazykrk-ndinqcls-zuhgyz tablet 1 tab PO QDAY 11/18/24 06/16/25 History topiramate 100 mg tablet (Topamax) 100 mg PO BID 11/18/24 06/17/25 03:00 History zonisamide 100 mg capsule 300 mg PO BID 11/18/24 06/16/25 History Allergy/AdvReac Type Severity Reaction Status Date / Time No Known Allergies Allergy Verified 06/17/25 17:57 Surgical History S/P knee surgery Social History Smoking Status: Never smoker alcohol intake: never ROS Constitutional Constitutional: Reports fatigue; Denies chills, fever(s) or weakness Cardiovascular Cardiovascular: Denies chest pain Respiratory/Chest Respiratory/Chest: Denies shortness of breath at rest Gastrointestinal Gastrointestinal: Reports nausea and vomiting; Denies abdominal pain, constipation or diarrhea Genitourinary Genitourinary: Reports dysuria, hematuria and other Details: Positive for left flank pain ; Denies burning urination, urinary frequency or urinary urgency Musculoskeletal Musculoskeletal: Denies arthralgias or myalgias Neurologic Neurologic: Denies dizziness, focal weakness or headache(s) Vital Signs Vital Signs Vital Signs: 06/17/25 15:00 06/17/25 17:00 Temperature 98.4 F Temperature Source Oral Pulse Rate 66 67 Respiratory Rate 16 16 Blood Pressure 153/74 H 129/67 H Blood Pressure Mean 100 87 Pulse Ox 100 100 Oxygen Delivery Method Room Air Room Air Weight Weight: 72.802 kg Body Mass Index (BMI) 23.0 Physical Exam Const alert, oriented x3, no apparent distress and average body habitus Constitutional Narrative: Pleasant elderly male, mildly fatigued appearing but otherwise laying back comfortably in bed, conversing normally, in no acute distress. General Appearance: cooperative and comfortable HEENT normocephalic, head/scalp atraumatic, hearing grossly normal bilaterally, nasal mucous membranes and turbinates normal and moist oral mucous membranes Eyes PERRL, EOMs intact bilaterally and conjunctivae normal Neck full ROM Chest inspection of chest normal Resp normal respiratory effort, normal air movement, no use of accessory muscles and clear to auscultation bilaterally Cardio regular rate, regular rhythm, no murmurs and peripheral pulses 2+ throughout GI normal to inspection, nondistended, normoactive bowel sounds, soft to palpation, non-tender and non-distended Narrative: Mild left-sided CVA tenderness noted. Bladder / Kidney Exam: bladder normal to palpation Back/Spine normal ROM Extremity normal to inspection, full ROM and no pedal edema Skin no rashes or lesions noted Psych mental status grossly normal Results Lab / Micro Data 06/17/25 16:00 06/17/25 16:00 Labs: Laboratory Results - last 24 hr 06/17/25 15:46: Urine Color Brown, Urine Clarity Turbid, Urine pH 5.0, Ur Specific [place] 1.020, Urine Protein 100 H, Urine Glucose (UA) Normal, Urine Ketones 5 H, Urine Occult Blood 250 H, Urine Nitrite Positive H, Urine Bilirubin 1 H, Urine Urobilinogen 1 H, Ur Leukocyte Esterase 100 H, Urine RBC > 100 SEEN, Urine WBC 5-10 SEEN, Ur Squamous Epith Cells 0-5 SEEN, Amorphous Sediment 2+, Urine Bacteria 2+, Urine Mucus 0 SEEN 06/17/25 16:00: WBC 11.5 H, RBC 4.26 L, Hgb 12.5 L, Hct 38.8 L, MCV 91.1, MCH 29.3, MCHC 32.2, RDW Std Deviation 47.6 H, RDW Coeff of Ronny 14.4, Plt Count 322, MPV 9.1, Immature Gran % (Auto) 0.300, Neut % (Auto) 83.6 H, Lymph % (Auto) 7.4 L, [place] % (Auto) 8.1, Eos % (Auto) 0.2, Baso % (Auto) 0.4, Absolute Neuts (auto) 9.6 H, Absolute Lymphs (auto) 0.85, Nucleated RBC % 0, Sodium 142, Potassium 4.6, Chloride 108, Carbon Dioxide 20.2 L, Anion Gap 14, BUN 30 H, Creatinine 3.81 H, Estim Creat Clear Calc 18.84 L, Est GFR (MDRD) Non-Af 16 L, BUN/Creatinine Ratio 7.9 L, Glucose 108 H, Calcium 10.7 Assessment & Plan Assessment/Plan (1) Bilateral nephrolithiasis: (2) Acute pyelonephritis: PLAN: Plan Patient is a 69-year-old male who presented to [facility] ED on 07/05 with left-sided flank pain and nausea with vomiting. 1. Bilateral nephrolithiasis with hydronephrosis and acute left-sided pyelonephritis ? Admit under inpatient status to PCU. Urology consulted. CT abdomen pelvis showed a 16.7 mm calculus at the right UPJ causing marked right hydronephrosis and a 7 mm ureteral calculus in the distal left ureter causing mild left hydronephrosis and left hydroureter with left perinephric standing. UA with 100 leukocyte esterase, positive nitrates, 2+ bacteria. Mild leukocytosis noted but otherwise afebrile and hemodynamically stable at rest, did not meet sepsis criteria. Planning for urgent procedure with Dr. Shaun chaney, will keep patient n.p.o. for this. Will treat with IV ceftriaxone for now, follow-up urine culture. 2. JULIEN ? Creatinine 3.81 on admit, baseline appears to be around 1.2. Patient does report adequate urine output until day of admission. Seems more likely prerenal in setting of acute pyelonephritis and GI losses from vomiting but may have some component of obstructive etiology. Urine sodium and creatinine ordered to calculate FeNa. Given 1 L of IV fluids in the ED. Will hold on further fluids for now, follow-up a.m. BMP and monitor urine output. 3. Seizure disorder ? Stable. Continue home topiramate and zonisamide. 4. Hyperlipidemia ? Continue home statin. DVT prophylaxis: Heparin subcu CODE STATUS: Full code, verified Expected disposition: Home, TBD Total clinical time spent by myself addressing the patient's medical issues, reviewing all the data, and collaborating with patient's care team: 62 minutes. Charges/Coding Visit Charges Inpatient E&M: 95127 Init Hosp L2
[2025-06-17] MEDS: Lactated Ringers 1,000 ML 15 ML IV (18:30)
--- NOTE | 2025-06-17 18:41 | PCM.PRE.AN2 ---
ASA Classification* ASA Classification ASA Classification: 2 and E Assessment & Plan Anesthesia* Anesthesia Assessment Anesthesia Assessment: Discussed sedation and/or anesthesia options, risks, benefits, and alternatives with patient/parents/legal guardian/POA. Questions invited. The patient/parents/legal guardian/POA seems to understand and agrees to proceed with anesthesia plan. Reviewed the physical assessment, medical history, allergy history and patient home medications list prior to surgery/procedure/anesthetic and documented any changes. Performed airway and anesthesia risk assessments. Anesthesia Type Anesthesia Type: MAC History Source History Obtained from:: Patient and Chart Anesthesia Focused Assessment* Temperature: 98.7 F Pulse Rate: 60 Blood Pressure: 125/68 Respiratory Rate: 18 Pulse Ox: 100 Oxygen Delivery Method: Room Air Airway Assessment Mouth opens: >3 cm Mallampati Score: III Teeth Condition: Chipped/Broken (Multiple chipped and broken teeth.) Neck Range of motion (ROM): Full ROM Labs Anesthesia Preop lab: CBC WBC, (4.4-11.0) 11.5 K/mm3 H Today, 16:00 RBC, (4.6-6.2) 4.26 M/mm3 L Today, 16:00 Hgb, (13.0-16.5) 12.5 g/dL L Today, 16:00 Hct, (40-54) 38.8 % L Today, 16:00 Plt Count, (150-450) 322 K/mm3 Today, 16:00 CHEMISTRY Potassium, (3.3-5.1) 4.6 mmol/L Today, 16:00 Sodium, (133-145) 142 mmol/L Today, 16:00 BUN, (4-19) 30 mg/dL H Today, 16:00 Creatinine, (0.70-1.20) 3.81 mg/dL H Today, 16:00 Glucose, (70-99) 108 mg/dL H Today, 16:00 COAG Pre-Assessment Diagnosis/Proposed Procedure Planned Operative Procedure(s): Cystoscopy, Insertion of left stent. Anesthesia History Anesthesia History - lime slaker: Anesthesia History - lime slaker Hx Hospitalization No 12/06/24 13:08 Any Problems With Anesthesia No 12/06/24 13:08 Cholinesterase deficiency No 12/06/24 13:08 You/Your Family Experience No 12/06/24 13:08 fever (hyperthermia) with Relationship Recent Exposure to Contagious No 12/20/24 06:31 Disease Does patient have nerve No 12/06/24 13:08 stimulator Patient instructed to have device shut off --Does patient have Pacemaker or ICD? When Was Last Pacemaker Check QUESTION #4 FULL TEXT: You/Your Family Experience fever (hyperthermia) with Anesthesia Last Oral Intake Last Oral intake: Last Oral Intake NPO since 10:00 06/17/25 17:43 Meds taken in AM with sips of No 06/17/25 17:43 water? 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 - lime slaker: PONV - lime slaker Female HX of Motion Sickness HX of N/V After Surgery Non-Smoker Duration of Surgery greater than 60 minutes Number of Risk Factors PONV Score Height & Weight Height & Weight: Anesthesia: Height & Weight Height 5 ft 10 in 06/17/25 17:43 Weight: 68.353 kg 06/17/25 17:43 Body Mass Index (BMI) 21.6 06/17/25 17:43 Respiratory Assessment Respiratory Assessment - lime slaker: Respiratory Tract Infection Hx - lime slaker Hx Respiratory Tract Infection No 12/06/24 13:08 STOP Sleep Apnea STOP Sleep Apnea - lime slaker: STOP Sleep Apnea - lime slaker Hx Hypertension No 12/06/24 13:08 Hx Sleep Apnea No 12/20/24 10:54 CPAP BIPAP Do you snore loudly (louder than talking or can be heard Do you often feel tired/ fatigued/ sleepy during daytime? Has anyone observed you stop breathing during sleep? STOP Results QUESTION #5 FULL TEXT : Do you snore loudly (louder than talking or can be heard through closed doors)? 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 Specify any problems Hx of Preganancy in last 3 Months Nurse Filling Out Transfusion & Questions: Date: Time: Patient unable to answer at this time (ie. confused, unrespo /Reproduction History /Reproductive History - lime slaker: /Reproductive Hx- lime slaker Hx Now Gestational Age (in weeks): EDC: Hx Hx Para Hx Section SAB Does the father of the baby or his family experience fever w Father of the baby Malignant Hypertension history comment Active Medications Active Medications: Current Medications Generic Name Dose Route Start Last Admin Trade Name Freq PRN Reason Stop Dose Admin Lactated Ringer's 1,000 mls @ 15 mls/hr 06/17/25 17:45 IV .Q48H MAXIMINO PFSH Medical History Kidney stones Bilateral inguinal hernia without obstruction or gangrene Wears glasses High cholesterol Non-smoker Seizures Left groin pain Home Medications ?Medication ?Instructions ?Recorded ?Last Taken ?Type atorvastatin 20 mg tablet 20 mg PO QDAY 11/18/24 06/16/25 History cholecalciferol (vitamin D3) 50 50 mcg PO QDAY 11/18/24 06/16/25 History mcg (2,000 unit) capsule mecobalamin (vitamin B12) 1,000 1,000 mcg PO QDAY 11/18/24 06/16/25 History mcg chewable tablet xmjslpsdocni-afmnwktx-iummrq tablet 1 tab PO QDAY 11/18/24 06/16/25 History topiramate 100 mg tablet (Topamax) 100 mg PO BID 11/18/24 06/17/25 03:00 History zonisamide 100 mg capsule 300 mg PO BID 11/18/24 06/16/25 History Allergy/AdvReac Type Severity Reaction Status Date / Time No Known Allergies Allergy Verified 06/17/25 17:57 Surgical History S/P knee surgery Social History Smoking Status: Never smoker alcohol intake: never Review of Systems (Anesthesia) ROS Narrative System reviewed and no additional complaints, except as documented.
--- NOTE | 2025-06-17 18:53 | POSTOPAN2_ITS ---
Anesthesia Postop Eval I Sum
--- NOTE | 2025-06-17 18:53 | PCM.POSTANE2 ---
Anesthesia Postop Eval I Sum Anesthesia Postop Eval I Summary Anesthesia Postop Eval I Summary: Anesthesia Postop Eval I: Assessment Summary Airway patent Spontaneous unlabored respirations Mental status nausea Vomiting Anesthesia Postop Eval I: Fluid Summary Crystalloid volume administer (ml) Colloids volume administered ( ml) Blood Product volume administered (ml) Total IV fluid infused Anesthesia Postop Eval I: Summary Notes Anesthesia Complication Anesthesia Complication Comment: Post-operative progress note Anesthesia: Postop Eval II Evaluation Mental status: Awake and Calm Pain Level: 1 nausea: No Vomiting: No Complications Anesthesia Complication: No
[2025-06-17] MEDS: ZONISAMIDE 100 MG CAPSULE 300 MG PO (19:00)
[2025-06-17] MEDS: Lactated Ringers 500 ML IV (19:12)
[2025-06-17] MEDS: Midazolam 2 MG/2 ML Syringe IV (19:20)
[2025-06-17] MEDS: Lidocaine 1% (5 ml sdv) 5 ML Vial 3 ML IV (19:20)
--- NOTE | 2025-06-17 19:31 | PCM.CONS.GEN ---
Assessment & Plan Assessment/Plan (1) Acute pyelonephritis: (2) Bilateral nephrolithiasis: PLAN: Plan right side observation nonfunctioning kidney no pain no intervention necessary at this point since is not infected etc. Left side plan for cystoscopy and left stent placement and then will plan for ureteroscopy and laser once the patient is stable (3) Migraines: (4) Bilateral inguinal hernia without obstruction or gangrene: (5) Seizures: (6) Left groin pain: HPI Consult Data Date of Consult: 06/17/25 HPI Narrative Reason for Consultation: Obstructing left kidney stone HPI Narrative: YOLANDE SALMERON, is a 69 M who presents to the emergency room with left severe flank pain CT scan was done that demonstrated 2 main findings, he has a nonfunctioning right kidney due to obstruction with a kidney stone and a dilated right kidney with no function, and he has a solitary left kidney obstructing stone in the mid left ureter and an elevated creatinine so plan to take him to surgery today for emergency left stent placement and then we will plan to bring him back later for laser lithotripsy of the stone the left side. The findings were discussed with the patient. [facility] Medical History Kidney stones Bilateral inguinal hernia without obstruction or gangrene Wears glasses High cholesterol Non-smoker Seizures Left groin pain Home Medications ?Medication ?Instructions ?Recorded ?Last Taken ?Type atorvastatin 20 mg tablet 20 mg PO QDAY 11/18/24 06/16/25 History cholecalciferol (vitamin D3) 50 50 mcg PO QDAY 11/18/24 06/16/25 History mcg (2,000 unit) capsule mecobalamin (vitamin B12) 1,000 1,000 mcg PO QDAY 11/18/24 06/16/25 History mcg chewable tablet xghiytemotds-iunffnsg-gplubt tablet 1 tab PO QDAY 11/18/24 06/16/25 History topiramate 100 mg tablet (Topamax) 100 mg PO BID 11/18/24 06/17/25 03:00 History zonisamide 100 mg capsule 300 mg PO BID 11/18/24 06/16/25 History Allergy/AdvReac Type Severity Reaction Status Date / Time No Known Allergies Allergy Verified 06/17/25 17:57 Surgical History S/P knee surgery Social History Smoking Status: Never smoker alcohol intake: never Physical Exam Const alert and oriented x3 General Appearance: cooperative HEENT normocephalic and head/scalp atraumatic Eyes PERRL and EOMs intact bilaterally Neck supple, no JVD and no carotid bruits Resp normal respiratory effort, normal air movement and clear to auscultation bilaterally Cardio regular rate and no murmurs GI normal to inspection, nondistended, normoactive bowel sounds and soft to palpation Extremity normal capillary refill General Extremity: no tenderness to palpation of joints or extremities; Negative for edema Skin no rashes or lesions noted and no wounds General Skin Exam: no breakdown Neuro CN's II-XII intact bilaterally Psych affect normal Appearance: appropriate Lab / Micro Data 06/17/25 16:00 06/17/25 16:00 Labs: Laboratory Results - last 24 hr 06/17/25 15:46: Urine Color Brown, Urine Clarity Turbid, Urine pH 5.0, Ur Specific [place] 1.020, Urine Protein 100 H, Urine Glucose (UA) Normal, Urine Ketones 5 H, Urine Occult Blood 250 H, Urine Nitrite Positive H, Urine Bilirubin 1 H, Urine Urobilinogen 1 H, Ur Leukocyte Esterase 100 H, Urine RBC > 100 SEEN, Urine WBC 5-10 SEEN, Ur Squamous Epith Cells 0-5 SEEN, Amorphous Sediment 2+, Urine Bacteria 2+, Urine Mucus 0 SEEN 06/17/25 16:00: WBC 11.5 H, RBC 4.26 L, Hgb 12.5 L, Hct 38.8 L, MCV 91.1, MCH 29.3, MCHC 32.2, RDW Std Deviation 47.6 H, RDW Coeff of Ronny 14.4, Plt Count 322, MPV 9.1, Immature Gran % (Auto) 0.300, Neut % (Auto) 83.6 H, Lymph % (Auto) 7.4 L, [place] % (Auto) 8.1, Eos % (Auto) 0.2, Baso % (Auto) 0.4, Absolute Neuts (auto) 9.6 H, Absolute Lymphs (auto) 0.85, Nucleated RBC % 0, Sodium 142, Potassium 4.6, Chloride 108, Carbon Dioxide 20.2 L, Anion Gap 14, BUN 30 H, Creatinine 3.81 H, Estim Creat Clear Calc 18.84 L, Est GFR (MDRD) Non-Af 16 L, BUN/Creatinine Ratio 7.9 L, Glucose 108 H, Calcium 10.7 06/17/25 18:03: Ur Random Sodium 32, Urine Creatinine 360.00 H
--- NOTE | 2025-06-17 19:33 | OP.PCM_ITS ---
Operative Report (Standard)
--- NOTE | 2025-06-17 19:33 | PCM.OPRPT ---
Operative Report (Standard) Operative Information Date of Procedure: 06/17/25 Pre-Operative Diagnosis: Obstructing left ureteral calculus left hydronephrosis acute renal sufficiency Post-Operative Diagnosis: The same Surgery/Procedure Performed: Cystoscopy left stent placement concrete spreader: No Type of Anesthesia: General RN Documented Start/Stop Times: Operation Date: 06/17/25 17:40 Case Time Into Pre-Op 06/17/25 17:35 Anesthesia Start 06/17/25 19:12 Into Room 06/17/25 19:12 Out of Pre-Op 06/17/25 19:16 Procedure Start 06/17/25 19:23 Procedure End 06/17/25 19:30 Procedure Start Time: 19:23 Procedure Stop Time: 19:30 Select all DRAINS/GRAFTS/IMPLANTS that apply: Drains Drain details: 6 [place] by 26 cm stent left side Estimated Blood Loss: None Specimen collected: No Description of surgery: Patient was taken back to the operating room after induction of general anesthesia, the patient was placed in dorsolithotomy position. The urethra and genitals were prepped and draped in usual sterile fashion. Using a 21 [place] rigid cystourethroscope the entire length of the urethra was normal then went into the bladder. Identified the trigone the left and right ureteral orifice. I then cannulated the left ureteral orifice and advanced a wire up into the kidney. I then backloaded a 5 [place] open ended catheter over the wire and injected contrast to delineate the anatomy. After the retrograde was performed I then used fluoroscopic images and guidance to advanced a wire up into the kidney and over the 0.038 glidewire I advanced a 6 [place] by 26 cm double pigtail stent. I then pulled the 0.038 Glidewire off and the stent coiled in the kidney bladder good position. The bladder was then drained. We confirmed the position of the stent by fluoroscopy. Patient anesthetic was reversed and was taken back to the PACU in good condition. Surgical Findings: This stent placed left side Complications Complications: No Admit VTE Documentation VTE Present on Admission: No VTE Mechan Device Prophylaxis: SCD's VTE Pharm Prophylaxis ordered?: No
--- NOTE | 2025-06-17 19:40 | POSTOP.ANE_ITS ---
Anesthesia: Postop Eval I
--- NOTE | 2025-06-17 19:40 | PCM.POST.ANE ---
Anesthesia: Postop Eval I Current Vital Signs Temperature: 98.3 F Pulse Rate: 68 Blood Pressure: 118/69 Respiratory Rate: 16 Pulse Ox: 94 Oxygen Delivery Method: Room Air Assessment Airway patent: Yes Spontaneous unlabored respirations: Yes Mental status: Calm and Asleep (Arousable) nausea: No Vomiting: No Anesthesia Complication: No Fluid Hydration Crystalloid volume administer (ml): 500 Total IV fluid infused: 500 Progress Note Anesthesia document: Postop Eval 1 completed: Yes
--- NOTE | 2025-06-17 20:00 | POSTOPAN2_ITS ---
Anesthesia Postop Eval I Sum
--- NOTE | 2025-06-17 20:00 | PCM.POSTANE2 ---
Anesthesia Postop Eval I Sum Postop Eval Completion status Anesthesia document: Postop Eval 1 completed: Yes Anesthesia Postop Eval I Summary Anesthesia Postop Eval I Summary: Anesthesia Postop Eval I: Assessment Summary Airway patent Yes 06/17/25 19:42 Spontaneous unlabored Yes 06/17/25 19:42 respirations Mental status Calm,Asleep - 06/17/25 19:42 Arousable nausea No 06/17/25 19:42 Vomiting No 06/17/25 19:42 Anesthesia Postop Eval I: Fluid Summary Crystalloid volume administer 500 06/17/25 19:42 (ml) Colloids volume administered ( ml) Blood Product volume administered (ml) Total IV fluid infused 500 06/17/25 19:42 Anesthesia Postop Eval I: Summary Notes Anesthesia Complication No 06/17/25 19:42 Anesthesia Complication Comment: Post-operative progress note Anesthesia: Postop Eval II Evaluation Mental status: Awake and Calm Pain Level: 0 nausea: No Vomiting: No Complications Anesthesia Complication: No
[2025-06-17] MEDS: MELATONIN 3 MG TABLET PO (21:05)
[2025-06-18 00:17] VITALS: PULSE 53
[2025-06-18 02:29] VITALS: BP 122/63; PULSE 58; RESP 16; TEMP 36.6; O2SAT 98
[2025-06-18 05:41] LABS: Hematocrit 34.2 % (40-54); Hemoglobin 11.1 g/dL (13.0-16.5); Mean Corp Hgb Conc 32.5 g/dL (32-36); Mean Corpuscular Volume 89.5 fL (80-94); Mean Platelet Vol. 9.4 fl (6.2-12.0); Platelet Count 273 K/mm3 (150-450); RBC Distribution Width CV 14.3 % (11.6-14.6); RBC Distribution Width SD 46.6 fl (35.1-43.9); Red Blood Count 3.82 M/mm3 (4.6-6.2); White Blood Count 7.8 K/mm3 (4.4-11.0)
[2025-06-18 06:17] LABS: Anion Gap 11 (5-15); BUN 29 mg/dL (4-19); BUN/Creat Ratio 9.3 RATIO (10-20); Calcium,Total 9.5 mg/dL (7.6-11.0); Carbon Dioxide 18.8 mmol/L (21.0-32.0); Chloride 112 mmol/L (98-108); Estimated Creatinine Clearance 23.37 ml/min (50-250); Glucose 94 mg/dL (70-99); Potassium 4.2 mmol/L (3.3-5.1)
[2025-06-18] MEDS: Heparin Injection (Vial) 5,000 UNIT/ML VIAL 5000 UNIT SC (06:31)
[2025-06-18] MEDS: ZONISAMIDE 100 MG CAPSULE 300 MG PO (06:31)
--- NOTE | 2025-06-18 08:45 | CASEMGMT ---
Dx: Bilateral nephrolithiasis, Acute pyelonephritis LACE: 2 6-Clicks: 22 Medical record reviewed and patient evaluated for identification of discharge planning needs. Based on this review, at this time criteria are not present to indicate a need for discharge planning. Will remain available to assist with discharge planning needs as identified or requested.
[2025-06-18] MEDS: FLU VACCINE HIGH DOSE 25-26(65YR UP) 180 MCG/0.5 ML SYRINGE IM (09:37)
[2025-06-18] MEDS: Cholecalciferol (VIT D3) 25 MCG TABLET (1,000 UNITS) 50 MCG PO ×2 (09:37)
[2025-06-18] MEDS: Ceftriaxone 2 GM in 0.9% Normal Saline (50mL MB+) 50 ML IV (09:46)
[2025-06-18 10:00] VITALS: PULSE 56
--- NOTE | 2025-06-18 14:48 | PN.HOSP_ITS ---
Reason for Visit
--- NOTE | 2025-06-18 14:48 | PCM.PN.HOSP ---
Reason for Visit Chief Complaint: Left-sided flank pain with nausea and vomiting Subjective Subjective Having some hematuria. Patient states that the urine is still red. Denies abdominal pain. Objective Data Objective Data Vital Signs: Vital Signs Temp Pulse Resp BP Pulse Ox O2 Del Method 36.6 C 56 L 16 122/63 H 98 Room Air 06/18/25 02:29 06/18/25 10:00 06/18/25 02:29 06/18/25 02:29 06/18/25 02:29 06/18/25 07:50 Oxygen Delivery Method Room Air Weight: 76 kg Body Mass Index (BMI) 24.0 Intake & Output: Intake and Output for Last 24 Hours 06/16/25 06/17/25 06/18/25 23:59 23:59 23:59 Intake Total 1283.25 / 1283.25 200 / 200 Balance 1283.25 / 1283.25 200 / 200 Lab / Micro Data 06/18/25 05:16 06/18/25 05:16 Labs: Laboratory Results - last 24 hr 06/17/25 15:46: Urine Color Brown, Urine Clarity Turbid, Urine pH 5.0, Ur Specific [place] 1.020, Urine Protein 100 H, Urine Glucose (UA) Normal, Urine Ketones 5 H, Urine Occult Blood 250 H, Urine Nitrite Positive H, Urine Bilirubin 1 H, Urine Urobilinogen 1 H, Ur Leukocyte Esterase 100 H, Urine RBC > 100 SEEN, Urine WBC 5-10 SEEN, Ur Squamous Epith Cells 0-5 SEEN, Amorphous Sediment 2+, Urine Bacteria 2+, Urine Mucus 0 SEEN 06/17/25 16:00: WBC 11.5 H, RBC 4.26 L, Hgb 12.5 L, Hct 38.8 L, MCV 91.1, MCH 29.3, MCHC 32.2, RDW Std Deviation 47.6 H, RDW Coeff of Ronny 14.4, Plt Count 322, MPV 9.1, Immature Gran % (Auto) 0.300, Neut % (Auto) 83.6 H, Lymph % (Auto) 7.4 L, [place] % (Auto) 8.1, Eos % (Auto) 0.2, Baso % (Auto) 0.4, Absolute Neuts (auto) 9.6 H, Absolute Lymphs (auto) 0.85, Nucleated RBC % 0, Sodium 142, Potassium 4.6, Chloride 108, Carbon Dioxide 20.2 L, Anion Gap 14, BUN 30 H, Creatinine 3.81 H, Estim Creat Clear Calc 18.84 L, Est GFR (MDRD) Non-Af 16 L, BUN/Creatinine Ratio 7.9 L, Glucose 108 H, Calcium 10.7 06/17/25 18:03: Ur Random Sodium 32, Urine Creatinine 360.00 H 06/18/25 05:16: WBC 7.8, RBC 3.82 L, Hgb 11.1 L, Hct 34.2 L, MCV 89.5, MCH 29.1, MCHC 32.5, RDW Std Deviation 46.6 H, RDW Coeff of Ronny 14.3, Plt Count 273, MPV 9.4, Sodium 141, Potassium 4.2, Chloride 112 H, Carbon Dioxide 18.8 L, Anion Gap 11, BUN 29 H, Creatinine 3.08 H, Estim Creat Clear Calc 23.37 L, Est GFR (MDRD) Non-Af 21 L, BUN/Creatinine Ratio 9.3 L, Glucose 94, Calcium 9.5 Micro: Microbiology 06/17/25 16:46 Urine, Clean Catch Urine Culture - Preliminary Culture exhibits no growth. Physical Exam Const alert and no apparent distress Constitutional Narrative: Up in bed. Nontoxic HEENT head/scalp atraumatic and moist oral mucous membranes Resp normal respiratory effort, no retractions, no use of accessory muscles and clear to auscultation bilaterally Cardio regular rate, regular rhythm, S1 normal heart sound and S2 normal heart sound GI normal to inspection, nondistended, normoactive bowel sounds, soft to palpation, non-tender and non-distended Assessment & Plan Assessment/Plan (1) Ureteral calculus: PLAN: Patient has chronic 16.7 calculus at the right UPJ with marked degree of right hydronephrosis. But he had a 7 mm ureteral calculus of the distal portion of the left ureter. Patient underwent cystoscopy on the seventh and had a left ureteral stent placed. The right was observational due to nonfunctioning kidney and no pain per urology. Patient to follow-up with urology as outpatient and will have ureteroscopy and laser. Patient did have hematuria before and after the procedure but discussed with the nurse that urine is more of a pink color. Patient is feeling much better at this time. Patient to follow-up with urology as outpatient. No evidence of any pyelonephritis on his imaging nor his urinalysis. No additional antibiotics at this time.
--- NOTE | 2025-06-18 15:03 | PCM.DC.SUM ---
Providers Date of Admission: 06/17/25 Primary Care Physician: Dr. Steve Hughes MD Consultations 06/17/25 20:20 Consult: Urology Routine Consulting Provider: Bryan Dunn Reason for Consult: b/l nephrolithiasis w/ hydronephrosis EMERGENT Consult: No MD Notified: Yes Date Notified: 06/17/25 Time Notified: 22:19 Method of Notification: Verbal Reason For Visit: B/L NEPHROLITHIASIS W/ HYDRONEPHROSIS Diagnosis Discharge Diagnosis (1) Ureteral calculus: Status: Acute Code(s): N20.1 - Calculus of ureter Plan: Patient has chronic 16.7 calculus at the right UPJ with marked degree of right hydronephrosis. But he had a 7 mm ureteral calculus of the distal portion of the left ureter. Patient underwent cystoscopy on the and had a left ureteral stent placed. The right was observational due to nonfunctioning kidney and no pain per urology. Patient to follow-up with urology as outpatient and will have ureteroscopy and laser. Patient did have hematuria before and after the procedure but discussed with the nurse that urine is more of a pink color. Patient is feeling much better at this time. Patient to follow-up with urology as outpatient. No evidence of any pyelonephritis on his imaging nor his urinalysis. No additional antibiotics at this time. Patient proved much faster than initially anticipated. Medications at Discharge Home Medications atorvastatin 20 mg tablet 20 mg PO QDAY cholesterol 11/18/24 cholecalciferol (vitamin D3) 50 mcg (2,000 unit) capsule 50 mcg PO QDAY vitamin 11/18/24 mecobalamin (vitamin B12) 1,000 mcg chewable tablet 1,000 mcg PO QDAY vitamin 11/18/24 hfunwiiqayfk-xnfwhjdh-tuiull tablet 1 tab PO QDAY vitamin 11/18/24 topiramate 100 mg tablet (Topamax) 100 mg PO BID seizures 11/18/24 zonisamide 100 mg capsule 300 mg PO BID seizures 11/18/24 Hospital Course Procedures - (Cystoscopy) Weight / BMI Weight Weight: 76 kg Body Mass Index (BMI) 24.0 ABG / Lab / Microbiology Data 06/18/25 05:16 06/18/25 05:16 Laboratory: Laboratory Results - last 24 hr 06/17/25 15:46: Urine Color Brown, Urine Clarity Turbid, Urine pH 5.0, Ur Specific [place] 1.020, Urine Protein 100 H, Urine Glucose (UA) Normal, Urine Ketones 5 H, Urine Occult Blood 250 H, Urine Nitrite Positive H, Urine Bilirubin 1 H, Urine Urobilinogen 1 H, Ur Leukocyte Esterase 100 H, Urine RBC > 100 SEEN, Urine WBC 5-10 SEEN, Ur Squamous Epith Cells 0-5 SEEN, Amorphous Sediment 2+, Urine Bacteria 2+, Urine Mucus 0 SEEN 06/17/25 16:00: WBC 11.5 H, RBC 4.26 L, Hgb 12.5 L, Hct 38.8 L, MCV 91.1, MCH 29.3, MCHC 32.2, RDW Std Deviation 47.6 H, RDW Coeff of Ronny 14.4, Plt Count 322, MPV 9.1, Immature Gran % (Auto) 0.300, Neut % (Auto) 83.6 H, Lymph % (Auto) 7.4 L, [place] % (Auto) 8.1, Eos % (Auto) 0.2, Baso % (Auto) 0.4, Absolute Neuts (auto) 9.6 H, Absolute Lymphs (auto) 0.85, Nucleated RBC % 0, Sodium 142, Potassium 4.6, Chloride 108, Carbon Dioxide 20.2 L, Anion Gap 14, BUN 30 H, Creatinine 3.81 H, Estim Creat Clear Calc 18.84 L, Est GFR (MDRD) Non-Af 16 L, BUN/Creatinine Ratio 7.9 L, Glucose 108 H, Calcium 10.7 06/17/25 18:03: Ur Random Sodium 32, Urine Creatinine 360.00 H 06/18/25 05:16: WBC 7.8, RBC 3.82 L, Hgb 11.1 L, Hct 34.2 L, MCV 89.5, MCH 29.1, MCHC 32.5, RDW Std Deviation 46.6 H, RDW Coeff of Ronny 14.3, Plt Count 273, MPV 9.4, Sodium 141, Potassium 4.2, Chloride 112 H, Carbon Dioxide 18.8 L, Anion Gap 11, BUN 29 H, Creatinine 3.08 H, Estim Creat Clear Calc 23.37 L, Est GFR (MDRD) Non-Af 21 L, BUN/Creatinine Ratio 9.3 L, Glucose 94, Calcium 9.5 Microbiology: Microbiology 06/17/25 16:46 Urine, Clean Catch Urine Culture - Preliminary Culture exhibits no growth. D/C Instructions DC O2, CPAP, BIPAP Needs Home O2 Discharge instructions: No DC home with Oxygen: No Meaningful Use Info Meaningful Use Meaningful Use Diagnoses (Choose all that apply): None applicable Discharge Plan Admission Admit Date/Time: 06/17/25 17:57 Primary Reason for Your Visit: Left ureteral stone Attending Provider: Bryan Dunn Primary Care Provider: Steve Hughes Consulting Providers: Basim Everett Instructions Additional Instructions / Restrictions: You had a kidney stone in your left ureter (the tube connecting your kidney to your bladder). You underwent a procedure called a cystoscopy and you had a stent placed in your ureter. He will follow-up with urology as outpatient to have repeat procedure for the stone and the stent. He did have he hematuria (blood in urine) this is due to the stone and the stent. This should continue to improve with time. You do notice increased bleeding with blood clots, notify your physician or return to the emergency room. Discharge Orders/Prescriptions Prescriptions: Continued topiramate [Topamax] 100 mg tablet 100 mg PO BID cholecalciferol (vitamin D3) 50 mcg (2,000 unit) capsule 50 mcg PO QDAY zonisamide 100 mg capsule 300 mg PO BID mecobalamin (vitamin B12) 1,000 mcg tablet,chewable 1,000 mcg PO QDAY atorvastatin 20 mg tablet 20 mg PO QDAY [id number]-[id number] Tablet 1 tab PO QDAY Referrals / Follow Up: Steve Hughes MD [Primary Care Provider, Family Practice] - Within 2 Weeks Bryan Dunn MD [Med Staff - Active Staff, Urology] - Within 2 Weeks Disposition Disposition (needs filled in before D/C Order can be placed): Home, Self Care Charges/Coding Visit Charges Inpatient E&M: 16837 Disch Hosp
== END 2025-06-18 15:55 | disposition home or self-care (01) | DRG 661 ==
LOC: ED 17:26 → PCU 06-18 07:15 → SDC 06-20 09:10 → ACINP 06-20 09:10 → PCU 06-20 09:11 → SDC 06-20 09:11 → PCU 06-20 09:11
PROVIDERS: Admitting Provider Hospitalist; Emergency Provider Surgery; PCP Family Medicine; Visit Provider Urology
PROC: 0T778DZ Dilation of Left Ureter with Intraluminal Device, Via Natural or Artificial Opening Endoscopic (ICD-10-PCS; principal; 2025-06-17 17:30)
DX: N13.2 Hydronephrosis with renal and ureteral calculous obstruction (principal); E78.00 Pure hypercholesterolemia, unspecified; G40.909 Epilepsy, unspecified, not intractable, without status epilepticus; Z79.899 Other long term (current) drug therapy; Z23 Encounter for immunization
CPT/HCPCS: 36415; 74018; 74176; 76000; 80048; 80053; 81001; 82570; 84300; 85025; 85027; 87086; 94668; 97802; 99283; A4216; C1769; C2617; J0696; J2405

== ENCOUNTER → 2025-06-17 | Outpatient (CLI) | payer MEDICARE, SELFPAY ==
--- NOTE | 2025-06-17 11:17 | RAD_ITS ---
PROCEDURE: RAD/Abdomen Single View
[2025-06-17 12:04] LABS: Hematocrit 41.6 % (40-54); Hemoglobin 13.4 g/dL (13.0-16.5); Immature Granulocytes Count 0.040 X10^3/uL (0.0-0.0); Mean Corp Hgb Conc 32.2 g/dL (32-36); Mean Corpuscular Volume 91.0 fL (80-94); Mean Platelet Vol. 9.2 fl (6.2-12.0); NRBC Flagged by Analyzer 0 % (0-5); Platelet Count 354 K/mm3 (150-450); RBC Distribution Width CV 14.3 % (11.6-14.6); RBC Distribution Width SD 47.5 fl (35.1-43.9); Red Blood Count 4.57 M/mm3 (4.6-6.2); White Blood Count 12.7 K/mm3 (4.4-11.0)
[2025-06-17 12:45] LABS: AST(SGOT) 21 U/L (<=37); Alanine Aminotransfer ALT/SGPT 14 U/L (<=46); Albumin, Serum 4.2 g/dL (3.4-4.8); Alkaline Phosphatase 107 U/L (40-129); Anion Gap 13 (5-15); BUN 29 mg/dL (4-19); BUN/Creat Ratio 8.3 RATIO (10-20); Calcium,Total 10.8 mg/dL (7.6-11.0); Carbon Dioxide 20.5 mmol/L (21.0-32.0); Chloride 109 mmol/L (98-108); Globulin 2.9 g/dL (2.2-4.2); Glucose 118 mg/dL (70-99); Potassium 4.0 mmol/L (3.3-5.1)
== END | disposition home or self-care (01) ==
LOC: MTLAB 11:17
PROVIDERS: PCP Family Medicine
DX: R31.0 Gross hematuria (principal)
CPT/HCPCS: 36415; 74018; 80053; 85025

== ENCOUNTER → 2025-06-17 | Outpatient (CLI) | payer MEDICARE, SELFPAY ==
--- NOTE | 2025-06-17 14:36 | CT_ITS ---
PROCEDURE: CT/Abdomen/Pelvis without Cont
== END | disposition home or self-care (01) ==
LOC: CT 14:34
PROVIDERS: PCP Family Medicine
DX: R31.0 Gross hematuria (principal)
CPT/HCPCS: 74176